=== PATIENT | female | born 1990 | race Caucasian/White ===

== ENCOUNTER 2022-04-05 17:21 | Outpatient (CLI) | payer OTHER | END 2022-04-05 17:22 | disposition home or self-care (01) | LOC: CSHLAB 17:21 | PROVIDERS: ATTEND Surgery | DX: Z20.822 Contact with and (suspected) exposure to COVID-19 (principal) | CPT/HCPCS: 87811 ==

== ENCOUNTER 2022-04-10 06:03 | Day surgery (SDC) | payer OTHER ==
[2022-04-05 16:10] VITALS: BMI 66.1
[2022-04-10] MEDS ORDERED: Lidocaine 1% PF 5 ML VIAL ONE (07:50)
[2022-04-10] MEDS ORDERED: PROPOFOL 40 ML ONE (07:50)
[2022-04-10] MEDS ORDERED: Midazolam HCl 2 mg/2 ml Vial ONE (07:56)
== END 2022-04-10 09:00 | disposition home or self-care (01) ==
LOC: CSHSDC 06:03
PROVIDERS: ATTEND Surgery
PROC: 0DJ08ZZ Inspection of Upper Intestinal Tract, Via Natural or Artificial Opening Endoscopic (ICD-10-PCS; principal; 2022-04-10)
DX: K21.9 Gastro-esophageal reflux disease without esophagitis (principal); K44.9 Diaphragmatic hernia without obstruction or gangrene; K29.70 Gastritis, unspecified, without bleeding; E66.01 Morbid (severe) obesity due to excess calories; Z68.44 Body mass index [BMI] 60.0-69.9, adult; G43.909 Migraine, unspecified, not intractable, without status migrainosus; F32.A Depression, unspecified; Z79.899 Other long term (current) drug therapy; Z20.822 Contact with and (suspected) exposure to COVID-19
CPT/HCPCS: J2250; J2704

== ENCOUNTER 2025-07-17 15:07 | Emergency (ER) | payer OTHER | END 2025-07-17 19:13 | disposition home or self-care (01) | LOC: CSHERS 15:07 | DX: O99.891 Other specified diseases and conditions complicating pregnancy (principal); M79.605 Pain in left leg; M79.602 Pain in left arm; Z3A.01 Less than 8 weeks gestation of pregnancy | CPT/HCPCS: 93005 ==